=== PATIENT | male | born 1960 | race African-American/Black ===

== ENCOUNTER 2022-08-02 08:37 | Emergency (ER) | payer BC ==
[~2022-08-02] VITALS: Ht 177.8 cm; Wt 84.0 kg
[2022-08-02] MEDS ORDERED: IBUPROFEN 600 MG TAB PO ONE ×2 (10:30)
[2022-08-02] MEDS ORDERED: IBUP600T27 PO (10:34)
[2022-08-02 10:38] VITALS: BP 158/80
== END 2022-08-02 10:40 | disposition home or self-care (01) ==
LOC: ER 08:37
DX: S80.02XA Contusion of left knee, initial encounter (principal); W51.XXXA Accidental striking against or bumped into by another person, initial encounter; Y93.89 Activity, other specified; Y92.89 Other specified places as the place of occurrence of the external cause; Y99.8 Other external cause status
CPT/HCPCS: 73562